=== PATIENT | male | born 1960 | race Caucasian/White ===

== ENCOUNTER 2021-06-11 02:30 | Inpatient (IN) | payer BC, MEDICAID, SELFPAY ==
[2021-06-11] VITALS (33 sets, daily range): BP systolic 126–202; BP diastolic 79–115; PULSE 74–124; RESP 12–22; TEMP 36.1–36.8; O2SAT 94–100; BMI 27.3
--- NOTE | ~2021-06-11 | XR_ITS ---
EXAMINATION: XR chest 1V portable DATE: 06/11/2021 02:47 INDICATION: Chest pain TECHNIQUE: frontal view of the chest was obtained. COMPARISON: None FINDINGS: The lungs are clear with no focal airspace opacities, pulmonary edema, pleural effusion or pneumothor ax. The cardiomediastinal silhouette is normal. There are bridging osteophytes at multiple levels in the spine, consistent with diffuse idiopathic skeletal hyperostosis (DISH). IMPRESSION: 1. No acute cardiopulmonary disease. Reviewed, dictated and finalized at location A.
--- NOTE | 2021-06-11 02:39 | ED.CHESTPAIN ---
HPI - Chest Pain General Chief Complaint: Chest Pain Stated Complaint: Chest pain Time Seen by Provider: 06/11/21 02:39 History of Present Illness HPI narrative: Patient presents with chest pain rating to his right arm and right neck symptoms are approximate 1 hour prior to arrival did not resolve with Excedrin so he came to the ER for evaluation. Denies any prior cardiac history denies any smoking history denies any past medical history does not take any medications on a regular basis, pain is a ripping sensation constant no clear aggravating or alleviating factors Related Data Home Medications Medication Instructions Recorded Confirmed No Home Medications 06/11/21 06/11/21 Allergies Allergy/AdvReac Type Severity Reaction Status Date / Time No Known Allergies Allergy Verified 06/11/21 03:02 Review of Systems Review of Systems: CONSTITUTIONAL: Denies fever, chills, or sweats. EYES: Denies visual changes, redness, or discharge. ENT: Denies rhinorrhea, congestion, sore throat, or otalgia. CARDIOVASCULAR: Denies palpitations, or edema. RESPIRATORY: Denies cough GASTROINTESTINAL: Denies abdominal pain, nausea, vomiting, or diarrhea. GENITOURINARY: Denies dysuria or hematuria. SKIN: Denies rash or itching. MUSCULOSKELETAL: Denies back pain, joint pain, or myalgia. NEUROLOGIC: Denies headache, numbness, dizziness, or weakness. PSYCHIATRIC: Denies anxiety or depression. All systems reviewed & are unremarkable except as noted in HPI and below Exam Narrative: GENERAL: Mild distress due to pain HEAD: Normocephalic, atraumatic. EYES: PERRLA and EOMI. ENT: Nares clear, no rhinorrhea or epistaxis. Mucous membranes moist. NECK: Supple. No masses. No JVD CHEST: Regular tachycardia HEART: Regular rate and rhythm. No murmur heard. Normal peripheral pulses. ABDOMEN: Soft, nontender, nondistended, normal active bowel sounds. EXTREMITIES: Normal range of motion. No edema. SKIN: Warm, dry, no rash. NEURO: No focal deficits. Alert and oriented x3. PSYCH: Normal mood and affect. Course Consultations Consultation #1: CODE STEMI CALLED Date: 06/11/21 Time: 02:40 Vital Signs Vital signs: Vital Signs Temperature 36.1 C L 06/11/21 02:33 Pulse Rate 124 H 06/11/21 02:33 Respiratory Rate 22 H 06/11/21 02:33 Blood Pressure 188/115 H 06/11/21 02:33 Pulse Oximetry 100 06/11/21 02:33 Temperature 36.1 C L 06/11/21 02:33 Pulse Rate 113 H 06/11/21 03:05 Respiratory Rate 16 06/11/21 03:05 Blood Pressure 155/113 H 06/11/21 03:05 Pulse Oximetry 100 06/11/21 03:05 MDM - Chest Pain MDM Narrative Medical decision making narrative: Patient with chest pain vital signs notable for regular tachycardia EKG was performed patient has ST elevations in inferior leads code STEMI was called interventional cardiology was notified patient was taken directly to the Motor Hotel Manager. Lab Data Result diagrams: 06/11/21 02:45 06/11/21 02:45 Labs: Lab Results 06/11/21 06/11/21 06/11/21 Range/Units 02:45 02:45 02:45 WBC 12.3 H (4.5-10.0) K/mm3 RBC 5.26 (4.6-6.20) M/mm3 Hgb 16.9 (14.0-18.0) g/dL Hct 48.8 (42.0-52.0) % MCV 92.8 (80-100) fl MCH 32.1 (26-34) pg MCHC 34.6 (32-36) g/dl RDW 12.9 (11.5-14.5) % Plt Count 284 (150-375) k/mm3 MPV 10.7 H (7.4-10.4) fl Immature Gran % (Auto) 0.5 (0-0.5) % Neut % (Auto) 74.3 H (45.5-73.1) % Lymph % (Auto) 17.5 L (18.3-44.2) % Garvin % (Auto) 5.8 (2.6-8.5) % Eos % (Auto) 1.3 (0-4.4) % Baso % (Auto) 0.6 (0.2-1.2) % Lymph # (Auto) 2.16 (0.9-3.2) K/mm3 Garvin # (Auto) 0.7 H (0.1-0.6) K/mm3 Eos # (Auto) 0.2 (0-0.3) K/mm3 Baso # (Auto) 0.1 (0.0-0.1) K/mm3 Abs Immat Gran (auto) 0.06 H (0.00-0.031) K/mm3 Absolute Neuts (auto) 9.1 H (1.3-6.7) K/mm3 Absolute Nucleated RBC 0.0 (0.0-0.012) K/mm3 Nucleated RBC % 0.0 (0.0-0.2) % PT 11.3 (11.1-14.7) Se
--- NOTE | 2021-06-11 02:42 | ECG_ITS ---
Measurements Intervals [place] Rate: 125 P: 247 MT: 190 QRS: 75 QRSD: 89 T: 91 QT: 282 QTc: 407 Interpretive Statements ECTOPIC ATRIAL TACHYCARDIA INFERIOR ST ELEVATION MYOCARDIAL INFARCT- ACUTE POSTERIOR INFARCT, ACUTE BASELINE ARTIFACT- II, III, AVR, AVF, V1, V3-V6 ABNORMAL ECG Electronically Signed On 06-11-2021 6:28:11 CDT by Gabo Peace D.O.
[2021-06-11] MEDS: ONDANSETRON INJ 4 MG/2 ML VIAL IV PUSH (02:59)
[2021-06-11] MEDS: MORPHINE SULFATE (*CRX) 4 MG/ML INJ IV PUSH (03:00)
[2021-06-11] MEDS: ASPIRIN 81 MG CHEWABLE TABLET 324 MG PO (03:00)
[2021-06-11] MEDS: HEPARIN SODIUM 5,000 UNITS/ML VIAL 4000 UNITS IV PUSH (03:01)
--- NOTE | 2021-06-11 03:04 | PC.NURSE ---
awaiting cardiac catheterization technician.
--- NOTE | 2021-06-11 04:22 | WPDCARDPROC ---
Cardiac Cath Procedure Note Date of procedure:: 06/11/21 Performing physician:: Aracely Boston MD Date of service June 11, 2021 Indication:: inferior STEMI Brief clinical history:: this 61-year-old patient with no significant past medical history except for remote tobacco use for about 20 years but quit many years ago. He started at 1:30 a.m. complaining of central chest pain that was not relieved by Excedrin. It was central in location associated with nausea. He presented to our emergency room around 2:30 a.m. and was found to have inferior STEMI. His ST segment elevation leads 2 3 and AVF were about 4-5 mm. Associated with shortness of breath but denies dizziness or syncope. Does not take any medications at home. Procedure Procedure performed:: 1-Moderate sedation that started at 3:29 a.m. and ended at 4:15 a.m. with total duration 46 minutes using 3mg of Versed and 125mcg fentanyl. The registered nurse was Sunny Black. 2-Selective left and right coronary angiogram. 3-Left heart catheterization with measurement of LVEDP and measurement of gradient across aortic valve. 3- LV angiogram. 4- Deployment with drug-eluting stent 3.5 x 18 to distal right coronary artery. 4-Right common femoral arterial angiogram. 5-Deployment of 6 Austrian Angio-Seal. Sedation/Medication given:: Moderate sedation. Access site:: Right common femoral artery. Estimated blood loss:: 10cc Procedure note:: After informed consent patient was brought in to photographic laboratory technician with the was draped and prepped in usual manner. Moderate sedation was given and the right groin was infiltrated using 1% lidocaine. Six Austrian sheath was obtained using micropuncture needle and the modified Seldinger technique. Right coronary artery was engaged with difficulty using RCB guide catheter 6 Austrian. We tried initially JR4, WRP, AL1, AR1 without success. Then after that we went with coronary luge wire but we did not cross the distal lesion. After that we went with School Transportation Supervisor 150 wire and we managed to cross the lesion. After the balloon angioplasty done using 3 x 15 balloon with 2 inflations each under normal pressure for 25 seconds. Then deployed a drug-eluting stent Xience Leona 3.50x18 under nominal pressure for 25 seconds. Selective left coronary angiogram was done using JL4 catheter with the tip of the catheter placed in the left main coronary artery. Selective right coronary angiogram was done using JR4 catheter with the tip of the catheter placed to the right coronary artery. After that 5 Austrian pigtail catheter was advanced across the aortic valve into the left ventricle with measurement of LVEDP and measurement of gradient across aortic valve. The angiogram was done as well. Right common femoral arterial angiogram was done. deployed Angio-Seal. Findings:: 1- left coronary artery is a large artery that divides into large LAD, large circumflex artery. Left main has minimal irregularities. 2- left anterior descending artery is a large artery that runs and wraps around the apex. The LAD has diffuse irregularities in the proximal segment there are 30% and at the junction of the distal segment there is about 60%. Small diagonal 1 branch with ostial 60%. 3- leftcircumflex artery is a large artery Has diffuse minimal irregularities. Small OM1 has ostial 70%. 4- right coronary artery is Large artery and dominant and totally occluded distally. SHAE flow was 0 before intervention and 3 after intervention. 5- LVEDP was 12 mm Hg and no gradient across aortic valve. 6- LV angiogram shows estimated ejection fraction 55%. Basal and mid inferior wall akinesis. 6- opening arterial pressure was 160/70 and closing pressure was 130/80 7- right femoral artery angiogram shows no significant disease in the right common femoral artery. 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 60% lesion at the junction of the mid to distal segment of LAD. Assessment and Plan Additional Plan -
--- NOTE | 2021-06-11 04:30 | PM.IMHP ---
H&P: HPI History of Present Illness Date/Time: date of service 06/11/21 04:30 Chief Complaint: chest pain Narrative: this 61-year-old patient with no significant past medical history except for remote tobacco use for about 20 years but quit many years ago. He started at 1:30 a.m. complaining of central chest pain that was not relieved by Excedrin. It was central in location associated with nausea. He presented to our emergency room around 2:30 a.m. and was found to have inferior STEMI. His ST segment elevation leads 2 3 and AVF were about 4-5 mm. Associated with shortness of breath but denies dizziness or syncope. Does not take any medications at home. Review of Systems Review of Systems: All systems reviewed & are unremarkable except as noted in HPI and below Constitutional: Constitutional: Denies chills, Denies fatigue, Denies fever(s), Denies headache(s) and Denies snoring Eyes: Eyes: Denies eye discharge and Denies loss of vision ENT: Denies dizziness, Denies headache(s), Denies nasal discharge and Denies sore throat Cardiovascular: Cardiovascular: Reports as per HPI, Reports chest pain, Denies syncope, Denies rapid heart rate, Denies leg edema, Reports dyspnea, Denies dyspnea on exertion, Denies orthopnea and Denies paroxysmal nocturnal dyspnea Respiratory: Respiratory: Denies chest congestion, Denies cough, Reports dyspnea, Denies dyspnea on exertion, Denies snoring and Denies wheezing Gastrointestinal: Gastrointestinal: Denies abdominal pain, Denies diarrhea, Denies nausea and Denies vomiting Genitourinary: Genitourinary: Denies hematuria, Denies dysuria, Denies flank pain and Denies urinary frequency Musculoskeletal: Musculoskeletal: Denies myalgias, Denies arthralgias and Denies joint swelling Neurologic: Denies Abnormal speech present, Denies dizziness, Denies syncope, Denies headache(s), Denies focal weakness and Denies loss of vision Psychiatric: Psychiatric: Denies anxiety and Denies depression Endocrine: Endocrine: Denies cold intolerance, Denies fatigue and Denies heat intolerance Hematologic/Lymphatic: Hematologic/Lymphatic: Denies easy bleeding and Denies easy bruising Allergic/Immunologic: Allergic/Immunologic: Denies urticaria and Denies wheezing Meds Home Medications and Allergies Home Medications Medication Instructions Recorded Confirmed Type No Home Medications 06/11/21 06/11/21 History Allergies Allergy/AdvReac Type Severity Reaction Status Date / Time No Known Allergies Allergy Verified 06/11/21 03:02 Vital Signs Vital Signs - 24 hr 06/11/21 02:33 06/11/21 03:05 Temperature 36.1 C L Pulse Rate 124 H 113 H Respiratory Rate 22 H 16 Blood Pressure 188/115 H 155/113 H Pulse Oximetry 100 100 Exam Const: General: cooperative, healthy appearing, comfortable, no acute distress and well developed Nutritional Appearance: well nourished Orientation/consciousness: patient oriented x3 HENMT: Head: normal to inspection, normocephalic and atraumatic Ears: hearing grossly normal bilaterally and external ears normal General nose exam: Normal external nose present and Normal nares present Face and sinus: normal facial exam and no erythema Mouth: Yes moist mucous membranes and No lip abnormal Throat: uvula midline Eyes: General: appearance normal, both eyes and all related structures Eyelids: eyelids normal Sclera: sclerae normal Neck: Neck: normal visual inspection and full ROM Thyroid: thyroid normal Carotids: no bruits Lymphatic: lymphedema not noted Chest: Chest palpation & inspection: normal inspection of the chest and normal palpation of entire chest wall Resp: Effort & Inspection: normal respiratory effort and not labored Auscultation: clear to auscultation bilaterally, no crackles, no rales and no wheezes Cardio: Jugular venous distension: no JVD Rate: regular rate Rhythm: regular rhythm Heart sounds: S1 normal heart sound present, S2 normal heart sound pre
--- NOTE | 2021-06-11 04:33 | WPDMODSED ---
Moderate Sedation Note-Pt Data Patient Data Allergies Allergy/AdvReac Type Severity Reaction Status Date / Time No Known Allergies Allergy Verified 06/11/21 03:02 Home Medications Medication Instructions Recorded Confirmed Type No Home Medications 06/11/21 06/11/21 History Current Medications: Active Medications Hydromorphone HCl (Hydromorphone Hcl Inj (*Crx) 1 Mg/Ml Syr) 0.5 mg IV PUSH Q4H PRN PRN Reason: Pain Rated 7-10 Ondansetron HCl (Ondansetron Inj 4 Mg/2 Ml Vial) 4 mg IV PUSH Q4H PRN PRN Reason: Nausea Sedation/Anesthesia: No previous sedation/anesthesia problems (including family history). Mod Sed Physical Exam Physical Exam Pre Procedural Exam: Normal: Appearance, Eyes, Ears, Nose, Neck, Throat, Airway, Lungs, Heart Size, Heart Rate, Heart Rhythm, Neuro Exam, Abdomen, Liver, Kidneys, Spleen, Breasts, Genitalia, Extremities and Skin Hours since solid foods: 8 Hours since liquid intake: 8 Mallampati Classification: class 1 Internal Medicine - PN: Obj Da Vital Signs Vital Signs: Vital Signs - 24 hr 06/11/21 02:33 06/11/21 03:05 Temperature 36.1 C L Pulse Rate 124 H 113 H Respiratory Rate 22 H 16 Blood Pressure 188/115 H 155/113 H Pulse Oximetry 100 100 Meds/Results Medications: Active Medications Generic Name Dose Route Start Last Admin Trade Name Freq PRN Reason Stop Dose Admin Hydromorphone HCl 0.5 mg 06/11/21 03:41 Hydromorphone Hcl Inj (*Crx) 1 Mg/Ml Syr IV PUSH Q4H PRN Pain Rated 7-10 Ondansetron HCl 4 mg 06/11/21 03:41 Ondansetron Inj 4 Mg/2 Ml Vial IV PUSH Q4H PRN Nausea ASA Classification/Sedation ASA Classification/Sedation ASA Class: I Emergent: No Risks: Risks, benefits and alternatives explained and patient/family accepted plan for sedation. Patient re-evaluated immediately prior to sedation.
[2021-06-11 04:42] LABS: Basophils Absolute Auto 0.1 K/mm3 (0.0-0.1); Basophils Percent Auto 0.6 % (0.2-1.2); Eosinophils Absolute Auto 0.2 K/mm3 (0-0.3); Eosinophils Percent Auto 1.3 % (0-4.4); Hematocrit 48.8 % (42.0-52.0); Hemoglobin 16.9 g/dL (14.0-18.0); Immature Granulocyte Absolute 0.06 K/mm3 (0.00-0.031); Immature Granulocyte Percent A 0.5 % (0-0.5); Lymphocytes Absolute Auto 2.16 K/mm3 (0.9-3.2); Lymphocytes Percent Auto 17.5 % (18.3-44.2); Mean Corpuscular HGB Conc 34.6 g/dl (32-36); Mean Corpuscular Hemoglobin 32.1 pg (26-34); Mean Corpuscular Volume 92.8 fl (80-100); Mean Platelet Volume 10.7 fl (7.4-10.4); Monocytes Absolute Auto 0.7 K/mm3 (0.1-0.6); Monocytes Percent Auto 5.8 % (2.6-8.5); Neutrophils Absolute Auto 9.1 K/mm3 (1.3-6.7); Neutrophils Percent Auto 74.3 % (45.5-73.1); Platelet Count Result 284 k/mm3 (150-375); Red Blood Count 5.26 M/mm3 (4.6-6.20); Red Cell Distribution Width 12.9 % (11.5-14.5); White Blood Count 12.3 K/mm3 (4.5-10.0)
[2021-06-11 04:57] LABS: Alanine Aminotransferase 45 U/L (4-50); Albumin Level 5.2 g/dL (3.5-5.1); Alkaline Phosphatase 97 U/L (38-126); Anion Gap 15 mmol/L (8-16); Aspartate Amino Transferase 48 U/L (17-59); Bilirubin,Total 0.5 mg/dL (0.2-1.3); Blood Urea Nitrogen 17 mg/dL (9-20); Calcium 10.4 mg/dL (8.4-10.2); Carbon Dioxide 25 mmol/L (22-30); Chloride 102 mmol/L (98-107); Estimated CRCL calculation 70 ml/min; Estimated Glomerular Filt Rate > 60; Glucose 162 mg/dL (65-110); Potassium 4.1 mmol/L (3.4-5.0); Sodium 142 mmol/L (137-145)
[2021-06-11 04:58] LABS: INR 0.8; Prothrombin Time 11.3 Seconds (11.1-14.7)
[2021-06-11 04:59] LABS: Partial Thromboplastin Time 22.5 SECONDS (22.3-36.8)
[2021-06-11 05:13] LABS: Troponin I 0.414 ng/mL (0.000-0.034)
[2021-06-11 05:14] LABS: Troponin I 0.418 ng/mL (0.000-0.034)
[2021-06-11 05:21] LABS: Cholesterol 241 mg/dL (0-200); HDL Direct 53 mg/dL; Triglycerides 224 mg/dL (<150)
[2021-06-11] MEDS: HYDROmorphone HCL INJ (*CRX) 1 MG/ML SYR 0.5 MG IV PUSH ×3 (05:25→21:59)
[2021-06-11 05:32] LABS: LDL Cholesterol Direct 152 mg/dL
[2021-06-11 06:20] LABS: Hemoglobin A1C 5.7 % (<5.7)
--- NOTE | 2021-06-11 08:00 | ECG_ITS ---
Measurements Intervals [place] Rate: 96 P: 73 AK: 174 QRS: 79 QRSD: 93 T: -3 QT: 368 QTc: 466 Interpretive Statements SINUS RHYTHM INFERIOR INFARCT, PROBABLY RECENT ABNORMAL ECG Electronically Signed On 06-11-2021 9:23:51 CDT by Gabo Peace D.O.
[2021-06-11] MEDS: SODIUM CHLORIDE 0.9% IV 1,000 ML 125 ML IV CONT (08:08)
--- NOTE | 2021-06-11 08:47 | PM.PNCARD ---
Progress Note: A&P Assessment and Plan (1) ST elevation (STEMI) myocardial infarction: Qualifiers: Involved coronary artery: unspecified coronary artery Qualified Code(s): I21.3 - ST elevation (STEMI) myocardial infarction of unspecified site Code(s): I21.3 - ST elevation (STEMI) myocardial infarction of unspecified site Status: Acute Assessment and Plan: Status post PEDRO to the RCA. Residual disease in the LAD which is moderate. Currently feels much better. Groin is stable. Continue dual anti-platelet therapy, high-dose statin. Will add low-dose JORDY-inhibitor, check an EKG and will add a low-dose metoprolol 12.5 mg p.o. b.i.d. (2) Hyperlipidemia LDL goal <70: Code(s): E78.5 - Hyperlipidemia, unspecified Status: Acute Assessment and Plan: On statin (3) Elevated blood pressure reading: Code(s): R03.0 - Elevated blood-pressure reading, without diagnosis of hypertension Status: Acute Assessment and Plan: Adding low-dose JORDY-inhibitor and metoprolol Subjective Date/time seen: 06/11/21 08:47 Interval history: 61-year-old admitted overnight chest pain and found to have an inferior ST-elevation myocardial infarction. Status post PEDRO to the RCA. Residual Moderate disease in the mid LAD Date of service 06/11/2021: Feels okay at this point. Has some residual chest discomfort but much improved from a few hours ago. No groin pain no shortness of breath Review of Systems Review of Systems: All systems reviewed & are unremarkable except as noted in HPI and below Constitutional: Constitutional: Denies chills, Denies fatigue, Denies fever(s), Denies headache(s) and Denies snoring Eyes: Eyes: Denies eye discharge and Denies loss of vision ENT: Denies dizziness, Denies headache(s), Denies nasal discharge and Denies sore throat Cardiovascular: Cardiovascular: Reports as per HPI, Reports chest pain, Denies syncope, Denies rapid heart rate, Denies leg edema, Reports dyspnea, Denies dyspnea on exertion, Denies orthopnea and Denies paroxysmal nocturnal dyspnea Respiratory: Respiratory: Denies chest congestion, Denies cough, Reports dyspnea, Denies dyspnea on exertion, Denies snoring and Denies wheezing Gastrointestinal: Gastrointestinal: Denies abdominal pain, Denies diarrhea, Denies nausea and Denies vomiting Genitourinary: Genitourinary: Denies hematuria, Denies dysuria, Denies flank pain and Denies urinary frequency Musculoskeletal: Musculoskeletal: Denies myalgias, Denies arthralgias and Denies joint swelling Neurologic: Denies Abnormal speech present, Denies dizziness, Denies syncope, Denies headache(s), Denies focal weakness and Denies loss of vision Psychiatric: Psychiatric: Denies anxiety and Denies depression Endocrine: Endocrine: Denies cold intolerance, Denies fatigue and Denies heat intolerance Hematologic/Lymphatic: Hematologic/Lymphatic: Denies easy bleeding and Denies easy bruising Allergic/Immunologic: Allergic/Immunologic: Denies urticaria and Denies wheezing Exam Const: General: cooperative, healthy appearing, comfortable, no acute distress and well developed Nutritional Appearance: well nourished Orientation/consciousness: patient oriented x3 HENMT: Head: normal to inspection, normocephalic and atraumatic Ears: hearing grossly normal bilaterally and external ears normal General nose exam: Normal external nose present and Normal nares present Face and sinus: no erythema Mouth: Yes moist mucous membranes and No lip abnormal Eyes: Eyelids: eyelids normal Sclera: sclerae normal Neck: Neck: normal visual inspection Carotids: no bruits Lymphatic: lymphedema not noted Chest: Chest palpation & inspection: normal inspection of the chest and normal palpation of entire chest wall Resp: Effort & Inspection: normal respiratory effort and not labored Auscultation: clear to auscultation bilaterally, no crackles, no rales and no wheezes Cardio: Jugu
--- NOTE | 2021-06-11 09:01 | PC.NURSE ---
[facility] flyer was given to patient.
--- NOTE | 2021-06-11 09:40 | WPDCNINT ---
Assessment and Plan Assessment and plan (1) ST elevation (STEMI) myocardial infarction: Qualifiers: Involved coronary artery: unspecified coronary artery Qualified Code(s): I21.3 - ST elevation (STEMI) myocardial infarction of unspecified site Code(s): I21.3 - ST elevation (STEMI) myocardial infarction of unspecified site Status: Acute Assessment and Plan: Presented with chest pain, found to have acute inferior DE status post PEDRO to RCA, EF of 55%, residual disease in LAD which is moderate, continue dual antiplatelet therapy, high-dose statin, -cardiology following the patient is added JORDY inhibitor and low-dose metoprolol (2) Elevated blood pressure reading: Code(s): R03.0 - Elevated blood-pressure reading, without diagnosis of hypertension Status: Acute Assessment and Plan: Continue JORDY-inhibitor and metoprolol -continue to monitor (3) Hyperlipidemia LDL goal <70: Code(s): E78.5 - Hyperlipidemia, unspecified Status: Acute Assessment and Plan: Continue Statin Additional Plan Discussed with patient updated with his condition and plan of care. Code status: Full code Critical care time spent: 41 minutes This dictation may have been done utilizing a voice recognition system. Attempts have been made to correct errors. However, there may be uncorrected grammatical, spelling, and recognition errors present. Due to a high probability of clinically significant, life threatening deterioration, the patient required my highest level of preparedness to intervene emergently and I personally spent this critical care time directly and personally managing the patient. This critical care time included obtaining a history; examining the patient; pulse oximetry; ordering and review of studies; arranging urgent treatment with development of a management plan; evaluation of patient's response to treatment; frequent reassessment; and discussions with other providers. It was exclusive of separately billable procedures and treating other patients and teaching time. Please see Assessment and Plan section and the rest of the note for further information on patient assessment and treatment Correction Officer Supervisor Consult Note Consult date: 06/11/21 Time Seen: 07:04 Reason for consult: STEMI status post PEDRO x1 to distal RCA, EF 55% HPI: Adonis Romano is a 61 year old male with no significant past medical history except for remote tobacco use which she quit many years ago. Patient presented to the ER with midsternal chest pain associated with nausea and shortness of breath, denies any diaphoresis. There were no aggravating or alleviating factors. EKG showed acute inferior myocardial injury. Patient was taken emergently to the boot and shoe laborer status post PTCA/PCI and was found to have a total occlusion of the distal RCA, status post PEDRO x1, EF was 55% with basal and mild inferior wall akinesis. Patient also has residual disease in the LAD which is moderate. Patient was turned to the ICU for further management Patient seen and examined this morning, denies any chest pain at this time, denies any shortness breath, nausea, vomiting. States he just tired as he has not slept. Patient states he smoked 2 packets per day for about 28 years and has quit since many years. He does drink beer, 12 pack per week. Denies any illicit drug use. Patient is hemodynamically stable, urine output has been adequate, afebrile. 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
[2021-06-11] MEDS: traMADol HCL (*CRX) 50 MG TABLET PO ×2 (09:53→19:40)
[2021-06-11] MEDS: METOPROLOL TARTRATE 12.5 MG TABLET PO ×2 (09:54→21:33)
[2021-06-11] MEDS: lisinopriL 5 MG TABLET PO (09:54)
[2021-06-11] MEDS: TICAGRELOR 90 MG TABLET PO ×2 (09:54→21:33)
[2021-06-11] MEDS: ATORVASTATIN 40 MG TABLET PO (09:54)
[2021-06-11] MEDS: ASPIRIN 81 MG ENTERIC TABLET PO (09:55)
--- NOTE | 2021-06-11 15:42 | PC.NURSE ---
Brilinta cost will be $400.00 monthly. Patient unable to afford this medication. Care coordination attempting to get a hold of Cardiology.
[2021-06-12] VITALS (15 sets, daily range): BP systolic 120–148; BP diastolic 68–87; PULSE 22–106; RESP 12–20; TEMP 36.8–36.9; O2SAT 96–100
[2021-06-12 04:52] LABS: Basophils Percent Auto 0.3 % (0.2-1.2); Eosinophils Percent Auto 0.2 % (0-4.4); Hematocrit 43.8 % (42.0-52.0); Hemoglobin 15.1 g/dL (14.0-18.0); Immature Granulocyte Absolute 0.06 K/mm3 (0.00-0.031); Immature Granulocyte Percent A 0.4 % (0-0.5); Mean Corpuscular HGB Conc 34.5 g/dl (32-36); Mean Corpuscular Hemoglobin 32.5 pg (26-34); Mean Corpuscular Volume 94.4 fl (80-100); Monocytes Absolute Auto 1.5 K/mm3 (0.1-0.6); Neutrophils Absolute Auto 11.4 K/mm3 (1.3-6.7); Neutrophils Percent Auto 78.1 % (45.5-73.1); Platelet Count Result 236 k/mm3 (150-375); Red Blood Count 4.64 M/mm3 (4.6-6.20); White Blood Count 14.6 K/mm3 (4.5-10.0)
[2021-06-12 05:02] LABS: Anion Gap 8 mmol/L (8-16); Blood Urea Nitrogen 12 mg/dL (9-20); Calcium 9.1 mg/dL (8.4-10.2); Carbon Dioxide 26 mmol/L (22-30); Chloride 105 mmol/L (98-107); Estimated CRCL calculation 100 ml/min; Estimated Glomerular Filt Rate > 60; Glucose 134 mg/dL (65-110); Magnesium 2.3 mg/dL (1.6-2.3); Phosphorus 3.4 mg/dL (2.5-4.5); Potassium 3.8 mmol/L (3.4-5.0); Sodium 139 mmol/L (137-145)
[2021-06-12] MEDS: HYDROmorphone HCL INJ (*CRX) 1 MG/ML SYR 0.5 MG IV PUSH ×2 (05:34→10:14)
--- NOTE | 2021-06-12 07:00 | ECG_ITS ---
Measurements Intervals [place] Rate: 83 P: 58 UT: 169 QRS: 48 QRSD: 90 T: -43 QT: 395 QTc: 465 Interpretive Statements SINUS RHYTHM INFERIOR INFARCT, PROBABLY RECENT ABNORMAL ECG Electronically Signed On 06-12-2021 8:39:13 CDT by Gabo Peace D.O.
[2021-06-12] MEDS: ATORVASTATIN 40 MG TABLET PO (08:32)
[2021-06-12] MEDS: lisinopriL 5 MG TABLET PO (08:32)
[2021-06-12] MEDS: TICAGRELOR 90 MG TABLET PO ×2 (08:32→19:57)
[2021-06-12] MEDS: METOPROLOL TARTRATE 12.5 MG TABLET PO ×2 (08:32→19:57)
[2021-06-12] MEDS: ASPIRIN 81 MG ENTERIC TABLET PO (08:32)
--- NOTE | 2021-06-12 12:28 | WPDINTPN ---
Progress Note: A&P Assessment and Plan (1) ST elevation (STEMI) myocardial infarction: Qualifiers: Involved coronary artery: unspecified coronary artery Qualified Code(s): I21.3 - ST elevation (STEMI) myocardial infarction of unspecified site Code(s): I21.3 - ST elevation (STEMI) myocardial infarction of unspecified site Status: Acute Assessment and Plan: Presented with chest pain, found to have acute inferior ND status post PEDRO to RCA, EF of 55%, residual disease in LAD which is moderate, continue dual antiplatelet therapy, high-dose statin, -cardiology following the patient. Continue JORDY inhibitor and metoprolol (2) Elevated blood pressure reading: Code(s): R03.0 - Elevated blood-pressure reading, without diagnosis of hypertension Status: Acute Assessment and Plan: Continue JORDY-inhibitor and metoprolol -continue to monitor (3) Hyperlipidemia LDL goal <70: Code(s): E78.5 - Hyperlipidemia, unspecified Status: Acute Assessment and Plan: Continue Statin Additional Plan Discussed with patient and his on the phone and updated them with patient's condition and plan of care. I answered all questions. Code status: Full code Critical care time spent: 32 minutes This dictation may have been done utilizing a voice recognition system. Attempts have been made to correct errors. However, there may be uncorrected grammatical, spelling, and recognition errors present. Due to a high probability of clinically significant, life threatening deterioration, the patient required my highest level of preparedness to intervene emergently and I personally spent this critical care time directly and personally managing the patient. This critical care time included obtaining a history; examining the patient; pulse oximetry; ordering and review of studies; arranging urgent treatment with development of a management plan; evaluation of patient's response to treatment; frequent reassessment; and discussions with other providers. It was exclusive of separately billable procedures and treating other patients and teaching time. Please see Assessment and Plan section and the rest of the note for further information on patient assessment and treatment Subjective Date/time seen: 06/12/21 12:28 Interval history: Reason for consult: STEMI status post PEDRO x1 to distal RCA, EF 55% 06/30/2021: Patient seen examined this morning in the ICU, complains of mild shortness of breath, some right upper chest discomfort. Denies any nausea, vomiting, diaphoresis. Patient is hemodynamically stable, urine output has been adequate, afebrile, tolerating p.o. diet Review of Systems Review of Systems: All systems reviewed & are unremarkable except as noted in HPI and below Exam Const: General: comfortable and no acute distress HENMT: Mouth: Yes moist mucous membranes Eyes: Sclera: sclerae normal Pupils: Equal, round and reactive pupils present Neck: Neck: supple Thyroid: thyroid normal Lymphatic: lymphadenopathy not noted Resp: Effort & Inspection: normal respiratory effort Auscultation: clear to auscultation bilaterally Cardio: Rate: regular rate and tachycardic GI: Inspection: non-distended GI Palp: Yes Soft to palpation and No Tenderness to palpation present (GI) Auscultation: normal bowel sounds : Other: Deferred Urinary Catheter: Urinary Catheter: urine clear Skin: General skin exam: normal color and no rashes or lesions noted Neuro: Cranial nerves: Yes Equal, round and reactive pupils present Other: Patient is awake, alert, oriented x3 Extrem: General: normal to inspection, no edema and no pedal edema Other: Right groin site without evidence of ecchymosis or hematoma Psych: Mental Status: mental status grossly normal Affect: normal affect Objective Data Vital Signs Vital Signs: Vital Signs - 24 hr 06/11/21 12:58 06/11/21 13:00 06/11/21 14:00 Temperature Pul
--- NOTE | 2021-06-12 16:43 | PM.PNCARD ---
Progress Note: A&P Assessment and Plan (1) ST elevation (STEMI) myocardial infarction: Qualifiers: Involved coronary artery: unspecified coronary artery Qualified Code(s): I21.3 - ST elevation (STEMI) myocardial infarction of unspecified site Code(s): I21.3 - ST elevation (STEMI) myocardial infarction of unspecified site Status: Acute Assessment and Plan: Status post PEDRO to the RCA. Residual disease in the LAD which is moderate. Currently feels much better. Groin is stable. 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 EKG from earlier this morning on my personal review shows sinus rhythm with inferior Q-waves and slight ST elevation in the inferior leads similar to that which she had post intervention. In addition there is very slight p.o. depression in V4 and V5, consistent with pericarditis. Dilaudid seems to be helping. Will increase aspirin dosing and add colchicine EKG in the morning Keep overnight and re-evaluate tomorrow. (3) Hyperlipidemia LDL goal <70: Code(s): E78.5 - Hyperlipidemia, unspecified Status: Acute Assessment and Plan: On statin (4) Elevated blood pressure reading: Code(s): R03.0 - Elevated blood-pressure reading, without diagnosis of hypertension Status: Acute Assessment and Plan: Adding low-dose JORDY-inhibitor and metoprolol. Fairly well controlled. (5) Elevated blood sugar: Code(s): R73.9 - Hyperglycemia, unspecified Status: Acute Assessment and Plan: Blood sugars 162, 134 Check A1c Subjective Date/time seen: 06/12/21 16:43 Interval history: FU for [id number] admitted early 06/11/[address]-elevation myocardial infarction. Status post PEDRO to the RCA. Residual Moderate disease in the mid LAD. EF 55%. Date of service 06/11/2021: Feels okay at this point. Has some residual chest discomfort but much improved from a few hours ago. No groin pain no shortness of breath Date of service 06/12/2021: Not feeling well, some heaviness in his chest particularly with inspiration. This makes him feel little short of breath. Did not sleep well either. Has been out of bed and back and forth to the bathroom with no particular problems. Review of Systems Constitutional: Constitutional: Reports fatigue and Reports lethargy Eyes: Eyes: Reports no additional eye complaints ENT: Denies epistaxis Cardiovascular: Cardiovascular: Reports chest pain, Denies pedal edema, Denies leg edema, Denies lightheadedness and Denies palpitations Respiratory: Respiratory: Reports dyspnea Gastrointestinal: Gastrointestinal: Denies abdominal pain and Denies hematochezia Genitourinary: Genitourinary: Denies hematuria Musculoskeletal: Musculoskeletal: Reports no additional musculoskeletal complaints Integumentary/Breasts: Skin/Breast: Denies rash Neurologic: Reports system reviewed and no additional complaints, except as documented Psychiatric: Psychiatric: Reports no additional psychiatric complaints Exam Const: General: no acute distress and uncomfortable HENMT: Mouth: Yes moist mucous membranes Eyes: EOM: EOMs intact bilaterally Neck: Neck: supple Resp: Effort & Inspection: normal respiratory effort Auscultation: clear to auscultation bilaterally Cardio: Rate: regular rate Rhythm: regular rhythm Heart sounds: Rub heart sound present Other: Cath site without hematoma or tenderness, distal pulses intact GI: Inspection: non-distended GI Palp: Yes Soft to palpation, No Firmness to palpation present (GI) and N
[2021-06-12] MEDS: oxyCODONE/ACETAMINOPHEN (*CRX) 5-325 MG TABLET 2 TABLET PO ×2 (17:53→22:46)
[2021-06-12] MEDS: ASPIRIN 325 MG TABLET 650 MG PO ×2 (18:03→22:46)
[2021-06-12] MEDS: COLCHICINE 0.6 MG TABLET PO (19:57)
--- NOTE | 2021-06-12 20:59 | PC.NURSE ---
Update given to Sudha Mckeon RN and pt transferred to room 214 im IMU at 2044. Transferred with home belongings and medications. Four brilinta bottles placed in pt home bag as well as cath information given to patient.
--- NOTE | 2021-06-12 21:10 | PC.NURSE ---
This patient, Adonis Romano, was received from ICU-7 on 06/12/21 at 2045. Patient/family oriented to unit policies and routines
[2021-06-12] MEDS: TEMAZEPAM (*CRX) 15 MG CAPSULE PO (22:46)
[2021-06-13] VITALS (9 sets, daily range): BP systolic 104–130; BP diastolic 63–83; PULSE 79–98; RESP 16–20; TEMP 36.3–36.9; O2SAT 96–99
[2021-06-13 00:49] LABS: Hemoglobin A1C 5.7 % (<5.7)
[2021-06-13] MEDS: ASPIRIN 325 MG TABLET 650 MG PO ×2 (05:52→12:16)
--- NOTE | 2021-06-13 07:00 | ECG_ITS ---
Measurements Intervals [place] Rate: 100 P: 50 DE: 140 QRS: 54 QRSD: 104 T: -51 QT: 364 QTc: 470 Interpretive Statements SINUS TACHYCARDIA ATRIAL PREMATURE COMPLEX EARLY PRECORDIAL R/S TRANSITION INFERIOR MYOCARDIAL INFARCTION , PROBABLY RECENT BASELINE ARTIFACT- I, II, AVR ABNORMAL ECG Electronically Signed On 06-13-2021 9:04:23 CDT by Gabo Peace D.O.
[2021-06-13] MEDS: ATORVASTATIN 40 MG TABLET PO (08:32)
[2021-06-13] MEDS: COLCHICINE 0.6 MG TABLET PO (08:33)
[2021-06-13] MEDS: PANTOPRAZOLE SOD SESQUIHYDRATE 20 MG TAB PO (08:33)
[2021-06-13] MEDS: lisinopriL 5 MG TABLET PO (08:33)
[2021-06-13] MEDS: METOPROLOL TARTRATE 12.5 MG TABLET PO (08:33)
[2021-06-13] MEDS: TICAGRELOR 90 MG TABLET PO (08:34)
--- NOTE | 2021-06-13 15:01 | PM.DS ---
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 EKG showed [address] elevation in the inferior leads, V5 V6 with reciprocal ST depression. He was taken to the [facility] emergently by Dr. [place] and found have an occluded distal RCA. He had a 3.5 x 18 mm drug-eluting stent placed in the mid RCA. He has residual 60% stenosis of the mid to distal Left anterior descending and the small 1st obtuse marginal has a 70% ostial stenosis, small 1st diagonal with a 60% ostial stenosis. He was found to have inferior wall hypokinesis and ejection fraction of 55%. He had residual [address]-elevation in the inferior leads but significant improvement of his infarction changes. He remained hemodynamically stable but complained of pleuritic chest discomfort afterwards and a friction rub was heard. He had some mild AK depression. He was treated for post SC pericarditis with colchicine and aspirin 650 mg q.6 hours as well as analgesics with resolution of pain and the friction rub within 24 hours. My plan is to continue high-dose aspirin for another 3 days and go down to 81 mg daily. He was found to have elevated blood pressure treated with lisinopril and metoprolol. He has hyperlipidemia, with a total cholesterol of 241, triglycerides 224, LDL 152 an HDL 53, and was started on atorvastatin 80 mg daily. His blood sugars were 162 and 134 fasting, and A1c was 5.7, mildly abnormal. Heart healthy diet was reviewed. The patient's insurance will not cover Brilinta well but he was given samples of Brilinta for 16 days and a coupon card for Brilinta. He was instructed to see if the coupon card would cover his Brilinta well enough to make it affordable but if not call our office and we will switch to clopidogrel. He was instructed not to have any gap between these 2 medications. Status at Discharge Functional status at discharge: independent ambulation Overall status at discharge: patient is back to baseline Time Spent with Patient Time attestation: Total time spent providing and/or coordinating discharge services: 40 minutes Time spent: Greater than 30 minutes Exam Const: General: cooperative, healthy appearing and comfortable Nutritional Appearance: well nourished Resp: Effort & Inspection: normal respiratory effort Auscultation: clear to auscultation bilaterally GI: GI Palp: No abdominal tenderness Skin: General skin exam: normal color Other: Cath site shows a clean dry dressing, no ecchymosis or hematoma. Intact distal pulses. Neuro: General: patient oriented x3 Speech: normal speech Motor exam (neuro): Normal motor muscle tone present throughout Extrem: General: normal to inspection Right lower extremity: no edema Left lower extremity: no edema Psych: Appearance: grossly normal and well kempt Thought process: Normal thought process present DS: Data Data Completed and Pending Labs on day of discharge: Labs
--- NOTE | 2021-06-13 16:08 | PC.NURSE ---
Patient discharged to home at 1605. Patient was educated on post STEMI care, meds, precautions and follow-ups. Patient had no further questions at this time.
== END 2021-06-13 16:05 | disposition home or self-care (01) | DRG 247 ==
LOC: ANHED 03:16 → ANHICU 05:05 → ANHIMU 06-13 15:00 → ANHICU 06-16 07:43 → ANHIMU 06-16 07:43
PROVIDERS: Internal Medicine; Admitting Provider Internal Medicine Cardiovascular Disease; Emergency Provider Emergency Medicine; Visit Provider Internal Medicine Cardiovascular Disease
PROC: 4A023N7 Measurement of Cardiac Sampling and Pressure, Left Heart, Percutaneous Approach (ICD-10-PCS; CPT 93452; principal; 2021-06-11 03:05)
PROC: 027034Z Dilation of Coronary Artery, One Artery with Drug-eluting Intraluminal Device, Percutaneous Approach (ICD-10-PCS; 2021-06-11 03:05)
PROC: 027034Z Dilation of Coronary Artery, One Artery with Drug-eluting Intraluminal Device, Percutaneous Approach (ICD-10-PCS; 2021-06-11 03:05)
DX: I21.11 ST elevation (STEMI) myocardial infarction involving right coronary artery (principal); I24.1 Dressler's syndrome; E78.2 Mixed hyperlipidemia; I10 Essential (primary) hypertension; R73.9 Hyperglycemia, unspecified; Z87.891 Personal history of nicotine dependence
CPT/HCPCS: 36415; 71045; 80048; 80053; 80061; 83036; 83735; 84100; 84484; 85025; 85610; 85730; 93005; 93458; 96374; 96375; 99291; A9270; C1725; C1760; C1769; C1874; C1887; C1894; C9606; G0269; J0583; J1170; J1644; J2250; J2270; J2405; J3010; J7030; J7040

== ENCOUNTER 2022-08-19 08:32 | Day surgery (SDC) | payer BC, MEDICAID, SELFPAY ==
[2022-08-18 13:52] VITALS: BMI 26.4
[2022-08-19] VITALS (8 sets, daily range): BP systolic 122–154; BP diastolic 71–83; PULSE 72–99; RESP 11–18; TEMP 36.6–36.8; O2SAT 96–99; BMI 27.1
[2022-08-19 09:02] LABS: Basophils Absolute Auto 0.1 K/mm3 (0.0-0.1); Basophils Percent Auto 0.9 % (0.2-1.2); Eosinophils Absolute Auto 0.2 K/mm3 (0-0.3); Eosinophils Percent Auto 2.7 % (0-4.4); Hematocrit 45.7 % (42.0-52.0); Hemoglobin 15.2 g/dL (14.0-18.0); Immature Granulocyte Absolute 0.02 K/mm3 (0.00-0.031); Immature Granulocyte Percent A 0.3 % (0-0.5); Lymphocytes Absolute Auto 1.51 K/mm3 (0.9-3.2); Mean Corpuscular HGB Conc 33.3 g/dl (32-36); Mean Corpuscular Hemoglobin 30.8 pg (26-34); Mean Corpuscular Volume 92.7 fl (80-100); Mean Platelet Volume 9.7 fl (7.4-10.4); Monocytes Absolute Auto 0.7 K/mm3 (0.1-0.6); Neutrophils Absolute Auto 4.1 K/mm3 (1.3-6.7); Neutrophils Percent Auto 63.1 % (45.5-73.1); Platelet Count Result 276 k/mm3 (150-375); Red Blood Count 4.93 M/mm3 (4.6-6.20); White Blood Count 6.6 K/mm3 (4.5-10.0)
[2022-08-19 09:12] LABS: Anion Gap 5 mmol/L (8-16); Blood Urea Nitrogen 17 mg/dL (9-20); Calcium 8.8 mg/dL (8.4-10.2); Carbon Dioxide 29 mmol/L (22-30); Chloride 103 mmol/L (98-107); Estimated CRCL calculation 76 ml/min; Estimated Glomerular Filt Rate > 60; Glucose 115 mg/dL (65-110); Potassium 4.1 mmol/L (3.4-5.0); Sodium 137 mmol/L (137-145)
--- NOTE | 2022-08-19 10:39 | WPDCARDPROC ---
Cardiac Cath Procedure Note Date of procedure:: 08/19/22 Performing physician:: Raymond Fontanez MD Indication:: Chest pain atypical of angina known history of coronary disease with previous NV Brief clinical history:: this is a 62-year-old patient known to have coronary disease who presented with an acute inferior NV 1 year ago. That was [place] treated with stenting of his distal right coronary artery which was totally occluded. He had some non flow-limiting disease in the LAD at that time as well. The patient has been having episodes of fatigue, some shortness of breath as well as intermittent episodes of chest discomfort with shooting pain into the left side of his neck he also has a constant unremitting mild discomfort in the substernal region. Nuclear stress testing appears to have shown evidence of his previous infarction but no substantial ischemic burden. Because of ongoing symptoms a follow-up angiogram has been requested for today. Procedure Procedure performed:: Left ventriculogram coronary angiogram Angio-Seal to right femoral artery Sedation/Medication given:: fentanyl 50 mg Versed 2 mg case start time 1005 a.m. case end time 10:30 a.m. sedation provided by Harjit Thompson RN, trained observer Access site:: right femoral artery Estimated blood loss:: minimal Procedure note:: patient was brought to the cardiac catheterization lab where the right femoral triangle was prepared and draped in the normal fashion. Anesthesia was provided % lidocaine infiltrated locally. Using the modified Seldinger technique a 5 [place] sheath was placed into the femoral artery. After this I used a 5 [place] angled pigtail catheter to measure left-sided hemodynamics and to inject the left ventriculogram in the 30 degree RAMEY projection after this I engaged and injected the right coronary artery using a 5 [place] WRP catheter and then the left coronary was engaged and injected using a 5 [place] FL4 catheter. Following this the cineangiograms were reviewed and the case was terminated. An angiogram was performed to the femoral artery through the sheath and then a 6 [place] Angio-Seal device was deployed for hemostasis with good result. 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 Findings:: Hemodynamics: Central aortic pressure is 132 over 64 left ventricle 1320 end-diastolic pressure 12 gradient the aortic valve pullback. Left ventricle: The mid and basal portion of the inferior wall in the posterior basal segment are akinetic. The diaphragmatic segment contracts well the anterior wall and apex contract well. The global ejection fraction visually estimates to be 50-55%. The left main coronary artery is nicely patent. The left anterior descending is a moderate caliber artery extending down to around the apex and providing a significant out of the inferior wall as well. There is adventitial calcium in the proximal LAD but no significant stenosis. In the mid portion of the LAD there is a modest stenosis of about 30%. Angiographically this appears to be improved from about 50-60% stenosis on the films that were done last year. In no view was there any flow-limiting disease in the LAD. Circumflex is a medium caliber vessel giving rise to 2 marginal branches. The circumflex system is free of significant disease. There is a modest 50% plaque at the origin, ostium of small 1st OM 1. The right coronary artery is moderate caliber and dominant to the posterior circulation. The RPDA is relatively small given the wrap-around LAD described above. The stented segment in the 3rd portion of the right coronary rates remains widely patent with no loss of lumen there is SHAE 3 flow throughout the right coronary with no stenosis identified in any segment. Conclusion:: 1. Right coronary dominant circulation with no significant coronary
== END 2022-08-19 13:49 | disposition home or self-care (01) ==
PROVIDERS: Visit Provider Specialist
PROC: 4A023N7 Measurement of Cardiac Sampling and Pressure, Left Heart, Percutaneous Approach (ICD-10-PCS; CPT 93452; principal; 2022-08-19 10:00)
DX: I25.10 Atherosclerotic heart disease of native coronary artery without angina pectoris (principal); R07.9 Chest pain, unspecified; R06.02 Shortness of breath; R53.83 Other fatigue; I25.2 Old myocardial infarction; K21.9 Gastro-esophageal reflux disease without esophagitis; E78.5 Hyperlipidemia, unspecified; Z95.5 Presence of coronary angioplasty implant and graft; Z85.038 Personal history of other malignant neoplasm of large intestine; Z87.891 Personal history of nicotine dependence; Z79.82 Long term (current) use of aspirin; Z79.02 Long term (current) use of antithrombotics/antiplatelets
CPT/HCPCS: 36415; 80048; 85025; 93458; C1760; C1887; C1894; G0269; J1644; J2250; J3010; J7040

== ENCOUNTER 2024-07-21 02:30 | Emergency (ER) | payer OTHER, SELFPAY ==
--- NOTE | ~2024-07-21 | XR_ITS ---
Portable chest x-ray Comparison: 06/11/2021 Clinical History: Shortness of breath Findings: Lungs are clear, without focal consolidation or pleural effusion. Cardiomediastinal silho uette is stable. Bones and soft tissues are unremarkable. Impression: Clear lungs. Questionable COPD. Reviewed, dictated and finalized at location . [employer] Impression: Clear lungs. Questionable COPD.
[2024-07-21 02:30] VITALS: BP 147/93; PULSE 81; RESP 15; TEMP 36.2; O2SAT 99
[2024-07-21 02:32] VITALS: BP 147/93; PULSE 96; RESP 19; O2SAT 100
--- NOTE | 2024-07-21 02:38 | ECG_ITS ---
Test Date: 2024-07-21 02:36:13 Measurements Intervals [place] Rate: 82 P: 51 MN: 172 QRS: 62 QRSD: 97 T: 33 QT: 404 QTc: 474 Interpretive Statements SINUS RHYTHM MINIMAL Q WAVES- INFERIOR LEADS BASELINE ARTIFACT- I, II, AVR, AVL, AVF, V6 BORDERLINE ECG No previous ECG available for comparison Electronically Signed On 07-21-2024 07:01:34 [employer] by Gabo Peace D.O.
[2024-07-21 02:51] LABS: Basophils Absolute Auto 0.1 K/mm3 (0.0-0.1); Basophils Percent Auto 0.6 % (0.2-1.2); Eosinophils Absolute Auto 0.2 K/mm3 (0-0.3); Eosinophils Percent Auto 2.4 % (0-4.4); Hemoglobin 14.5 g/dL (14.0-18.0); Immature Granulocyte Absolute 0.02 K/mm3 (0.00-0.031); Immature Granulocyte Percent A 0.2 % (0-0.5); Lymphocytes Absolute Auto 2.59 K/mm3 (0.9-3.2); Lymphocytes Percent Auto 31.2 % (18.3-44.2); Mean Corpuscular HGB Conc 34.5 g/dl (32-36); Mean Corpuscular Hemoglobin 31.7 pg (26-34); Mean Corpuscular Volume 91.7 fl (80-100); Monocytes Absolute Auto 0.8 K/mm3 (0.1-0.6); Monocytes Percent Auto 9.9 % (2.6-8.5); Neutrophils Absolute Auto 4.6 K/mm3 (1.3-6.7); Neutrophils Percent Auto 55.7 % (45.5-73.1); Platelet Count Result 251 k/mm3 (150-375); Red Blood Count 4.58 M/mm3 (4.6-6.20); Red Cell Distribution Width 12.9 % (11.5-14.5); White Blood Count 8.3 K/mm3 (4.5-10.0)
[2024-07-21 03:01] LABS: Alanine Aminotransferase 23 U/L (6-50); Albumin Level 4.3 g/dL (3.5-5.1); Alkaline Phosphatase 85 U/L (38-126); Anion Gap 8 mmol/L (4-12); Aspartate Amino Transferase 27 U/L (17-59); Bilirubin,Total 0.5 mg/dL (0.2-1.3); Blood Urea Nitrogen 21 mg/dL (9-20); Calcium 9.2 mg/dL (8.4-10.2); Carbon Dioxide 26 mmol/L (22-30); Chloride 103 mmol/L (98-107); Estimated CRCL calculation 76 ml/min; Estimated Glomerular Filt Rate > 60; Glucose 129 mg/dL (65-110); Lipase 251 U/L (23-300); Potassium 3.7 mmol/L (3.4-5.0); Sodium 137 mmol/L (137-145)
[2024-07-21 03:15] VITALS: BP 130/71; PULSE 78; RESP 17; O2SAT 96
--- NOTE | 2024-07-21 03:25 | ED_ITS ---
HPI - Nausea/Vomiting/Diarrhea General Chief complaint: Nausea/Vomiting/Diarrhea Stated complaint: vomiting Time Seen by Provider: 07/21/24 02:43 Source: patient, family, EMS and RN notes reviewed Mode of arrival: EMS Limitations: no limitations History of Present Illness HPI Narrative: Patient presents with acute onset nausea and dizziness that woke him his sleep. Unknown given this reason if he had turned his head in his sleep just prior to symptoms. He woke up diaphoretic. He denies any chest pain although he has a history of a myocardial infarction and a cardiac stent and for this reason especially combined with diaphoresis, he was concerned. He previously had a 100% blockage 2 years ago. He took 2 nitroglycerin and 81 mg of aspirin. After the 2nd nitroglycerin states the began to vomit. EMS administered a 3rd nitroglycerin. He denies any neck pain. He did feel short of breath. At home he felt like the room spinning and initially upon arrival in the emergency department he states that he feels like he is spinning. His fugitive detective is Dr. Boston. No headache, ear pain, or tinnitus. He states he has occasionally had vertigo previously but this felt different. Denies any slurred speech or unilateral symptoms such as paresthesias or loss of motor function. Related Data Home Medications Medication Instructions Recorded Confirmed nitroglycerin 0.4 mg sublingual 0.4 mg sublingual PRN 08/18/22 08/19/22 tablet pantoprazole 40 mg tablet,delayed 40 mg PO DAILY 08/18/22 08/18/22 release clopidogrel 75 mg tablet 75 mg PO DAILY 08/19/22 08/19/22 Allergies Allergy/AdvReac Type Severity Reaction Status Date / Time No Known Allergies Allergy Verified 07/21/24 02:40 [facility] Past Medical History Medical History (Updated 07/21/24 @ 18:36 by Annalisa Light MD) History of myocardial infarction 2021 Hyperlipidemia LDL goal <70 Hypertension Mixed hyperlipidemia Surgical History Surgical History H/O heart artery stent Family History Family History (System 11/03/21 @ 15:17 by Natasha Taylor) Mother Colon cancer Grandparent Colon cancer Social History Social History (Updated 07/21/24 @ 18:33 by Annalisa Light MD) Smoking packs per day: 2 Smoking cigarettes per day: 40.0 Years smoked: 28 Smoking pack-years: 56.00 Smoking status: Former smoker Tobacco type: cigarettes Second hand tobacco smoke exposure: No Alcohol intake: current Drinks per week: 12 Alcohol use details: 2 drinks every other day Substance use: current Substance use type: marijuana Living arrangements: with family Occupation/Education: occupation Additional occupation/education comments: [employer] Spiritual care concerns: No Exam Narrative: GENERAL: Well-appearing, well-nourished, and in no acute distress. HEAD: Normocephalic, atraumatic. EYES: Non injected, non icteric. Horizontal and vertical extraocular movements intact. No nystagmus in any direction. ENT: Nares clear, no rhinorrhea or epistaxis. NECK: Supple. CHEST: Speaking in full sentences. No respiratory distress. HEART: Regular rate and rhythm. ABDOMEN: Soft, nondistended. EXTREMITIES: Normal range of motion. No lower extremity edema. SKIN: Warm, dry, no rash. Not diaphoretic at the time of exam. NEURO: No focal deficits. Alert and oriented x3. Speaks clearly without aphasia or dysarthria. PSYCH: Normal mood and affect. Course Vital Signs Vital signs: Vital Signs Temperature 97.2 F L 07/21/24 02:30 Pulse Rate 81 07/21/24 02:30 Respiratory Rate 15 07/21/24 02:30 Blood Pressure 147/93 H 07/21/24 02:30 Pulse Oximetry 99 07/21/24 02:30 Oxygen Delivery Room Air 07/21/24 02:30 Temperature 97.2 F L 07/21/24 02:30 Pulse Rate 82 07/21/24 07:13 Respiratory Rate 18 07/21/24 07:13 Blood Pressure 143/87 H 07/21/24 07:13 Pulse Oximetry 99 07/21/24 07:13 Oxygen Delivery Room Air 07/21/24 02:30 MDM - Nausea/Vomiting/Diarrhea MDM Narrative Medical decision making narrative: Patient presents with acute onset nausea and dizziness that woke him from his sleep. Unknown if any preceding head or neck movements. He denies any chest or neck or head pain but he has a history myocardial infarction status post stent and given that he was diaphoretic at the time he was concerned for cardiac etiology. He took 2 nitroglycerin and 81 mg prior to arrival. After the 2nd nitroglycerin sublingual tablet he did begin to vomit. In the emergency department he is afebrile with vital signs notable for mild hypertension. VERTIGO DIFFERENTIAL DIAGNOSIS Peripheral causes: Foreign body, cerumen impaction, acute otitis media, labyrinthitis, benign paroxysmal positional vertigo, Meniere's disease, vestibular neuronitis, perilymphatic fistula, trauma, motion sickness, acoustic neuroma, ototoxic medications Central causes: infection ( encephalitis, meningitis, cerebritis); vertebrobasilar arterial insufficiency, subclavian steal syndrome, cerebellar or brainstem hemorrhage or infarction, vertebrobasilar migraine, trauma ( temporal bone fracture, post concussive syndrome); tumor (brainstem or cerebellum); MS; temporal lobe epilepsy Patient has reassuring physical exam without nystagmus or focal neurological deficits. He is provided a dose of meclizine. Workup generally unremarkable. He is reassessed and states that he is feeling much better. We did discuss that we would obtain a 3 hour troponin given his risk factors. He verifies understanding and is in agreement. We discussed that we could pursue CT imaging (CT noncontrast brain and CTA of head and neck) though he states he does not think this is necessary and likely to be of low utility. 2nd troponin normal. Remains without chest pain. Symptoms resolved. Stable for discharge and advised on follow-up and given return precautions. Differential Diagnosis Differential diagnosis: Likely gastroenteritis, drug-induced nausea and vomiting and other (various etiologies of vertigo (central and peripheral); ACS; pneumonia; acute viral syndome) Lab Data Attestation: I reviewed the patient's lab results. 07/21/24 02:42 07/21/24 02:42 Labs: Lab Results 07/21/24 07/21/24 07/21/24 Range/Units 02:42 03:45 04:37 WBC 8.3 (4.5-10.0) K/mm3 RBC 4.58 L (4.6-6.20) M/mm3 Hgb 14.5 (14.0-18.0) g/dL Hct 42.0 (42.0-52.0) % MCV 91.7 (80-100) fl MCH 31.7 (26-34) pg MCHC 34.5 (32-36) g/dl RDW 12.9 (11.5-14.5) % Plt Count 251 (150-375) k/mm3 MPV 10.0 (7.4-10.4) fl Immature Gran % (Auto) 0.2 (0-0.5) % Neut % (Auto) 55.7 (45.5-73.1) % Lymph % (Auto) 31.2 (18.3-44.2) % [place] % (Auto) 9.9 H (2.6-8.5) % Eos % (Auto) 2.4 (0-4.4) % Baso % (Auto) 0.6 (0.2-1.2) % Lymph # (Auto) 2.59 (0.9-3.2) K/mm3 [place] # (Auto) 0.8 H (0.1-0.6) K/mm3 Eos # (Auto) 0.2 (0-0.3) K/mm3 Baso # (Auto) 0.1 (0.0-0.1) K/mm3 Abs Immat Gran (auto) 0.02 (0.00-0.031) K/mm3 Absolute Neuts (auto) 4.6 (1.3-6.7) K/mm3 Absolute Nucleated RBC 0.000 (0.0-0.012) K/mm3 Nucleated RBC % 0.0 (0.0-0.2) % PT 12.1 (11.1-14.7) Seconds INR 0.9 APTT 23.2 (22.3-36.8) Seconds Sodium 137 (137-145) mmol/L Potassium 3.7 (3.4-5.0) mmol/L Chloride 103 (98-107) mmol/L Carbon Dioxide 26 (22-30) mmol/L Anion Gap 8 (4-12) mmol/L BUN 21 H (9-20) mg/dL Creatinine 0.90 (0.7-1.3) mg/dL Estim Creat Clear Calc 76 ml/min Estimated GFR > 60 (59 - ) Glucose 129 H (65-110) mg/dL Calcium 9.2 (8.4-10.2) mg/dL Total Bilirubin 0.5 (0.2-1.3) mg/dL AST 27 (17-59) U/L ALT 23 (6-50) U/L Alkaline Phosphatase 85 (38-126) U/L Troponin I < 0.012 (0.000-0.034) ng/mL Total Protein 8.0 (6.3-8.2) g/dL Albumin 4.3 (3.5-5.1) g/dL Lipase 251 (23-300) U/L Urine Color Yellow (Yellow) Urine Appearance Clear (Clear) Urine pH 7.5 (5.0-9.0) Ur Specific [place] 1.027 (1.001-1.035) Urine Protein Negative (Negative) mg/dL Urine Glucose (UA) Negative (Negative) mg/dL Urine Ketones Trace H (Negative) mg/dL Ur Blood (Man) Negative (Negative) Urine Nitrate Negative (Negative) Urine Bilirubin Negative (Negative) Urine Urobilinogen 1.0 (<2.0) mg/dL Leukocyte Esterase Rfl Negative (Negative) EMIL/UL Influenza A (RT-PCR) Negative (Negative) Influenza B (RT-PCR) Negative (Negative) RSV (RT-PCR) Negative (Negative) SARS-CoV-2 RNA (RT-PCR) Negative (Negative) 07/21/24 Range/Units 06:11 WBC (4.5-10.0) K/mm3 RBC (4.6-6.20) M/mm3 Hgb (14.0-18.0) g/dL Hct (42.0-52.0) % MCV (80-100) fl MCH (26-34) pg MCHC (32-36) g/dl RDW (11.5-14.5) % Plt Count (150-375) k/mm3 MPV (7.4-10.4) fl Immature Gran % (Auto) (0-0.5) % Neut % (Auto) (45.5-73.1) % Lymph % (Auto) (18.3-44.2) % Banks % (Auto) (2.6-8.5) % Eos % (Auto) (0-4.4) % Baso % (Auto) (0.2-1.2) % Lymph # (Auto) (0.9-3.2) K/mm3 [place] # (Auto) (0.1-0.6) K/mm3 Eos # (Auto) (0-0.3) K/mm3 Baso # (Auto) (0.0-0.1) K/mm3 Abs Immat Gran (auto) (0.00-0.031) K/mm3 Absolute Neuts (auto) (1.3-6.7) K/mm3 Absolute Nucleated RBC (0.0-0.012) K/mm3 Nucleated RBC % (0.0-0.2) % PT (11.1-14.7) Seconds INR APTT (22.3-36.8) Seconds Sodium (137-145) mmol/L Potassium (3.4-5.0) mmol/L Chloride (98-107) mmol/L Carbon Dioxide (22-30) mmol/L Anion Gap (4-12) mmol/L BUN (9-20) mg/dL Creatinine (0.7-1.3) mg/dL Estim Creat Clear Calc ml/min Estimated GFR (59 - ) Glucose (65-110) mg/dL Calcium (8.4-10.2) mg/dL Total Bilirubin (0.2-1.3) mg/dL AST (17-59) U/L ALT (6-50) U/L Alkaline Phosphatase (38-126) U/L Troponin I < 0.012 (0.000-0.034) ng/mL Total Protein (6.3-8.2) g/dL Albumin (3.5-5.1) g/dL Lipase (23-300) U/L Urine Color (Yellow) Urine Appearance (Clear) Urine pH (5.0-9.0) Ur Specific [place] (1.001-1.035) Urine Protein (Negative) mg/dL Urine Glucose (UA) (Negative) mg/dL Urine Ketones (Negative) mg/dL Ur Blood (Man) (Negative) Urine Nitrate (Negative) Urine Bilirubin (Negative) Urine Urobilinogen (<2.0) mg/dL Leukocyte Esterase Rfl (Negative) EMIL/UL Influenza A (RT-PCR) (Negative) Influenza B (RT-PCR) (Negative) RSV (RT-PCR) (Negative) SARS-CoV-2 RNA (RT-PCR) (Negative) Imaging Data Attestation: I personally reviewed and interpreted this imaging study as follows: My impression: No acute intrathoracic process on my independent interpretation chest x-ray Radiologist's impression: Impressions Chest X-Ray 07/21/24 07:26 Impression: Clear lungs. Questionable COPD. ECG Data EKG #1: Attestation: I personally reviewed and interpreted this ECG as follows: ECG completion date: 07/21/24 ECG completion time: 02:36 Interpretation: Normal sinus rhythm at a rate of 82 beats per minute. ID interval 172. QRS 97. QT/QTC 4 4/443. Good R-wave progression across the precordial leads. No T- wave inversions. Normal axis. Normal ECG. EKG #2: Attestation: I personally reviewed and interpreted this ECG as follows: ECG completion date: 07/21/24 ECG completion time: 05:48 Interpretation: Normal sinus rhythm at a rate of 80 beats per minute. ID interval 172. QRS 100. QT/QTC 393/429. Good R-wave progression across the precordial leads. No T-wave inversions. Normal axis. Normal ECG. Discharge Plan Discharge Clinical Impression: Dizziness, Acute nausea with nonbilious vomiting Patient Disposition: Home, Self-Care Condition: Stable Instructions: Antibiotic Form, Acute Nausea and Vomiting (DC), Dizziness (ED) Additional Instructions: As we discussed, unclear etiology for your symptoms although her EKG, troponin, chest x-ray, and the rest of your labs were normal in addition to your viral swab. Follow-up with your primary care physician. If you do not have the name of doctors listed below. Return to the emergency department any new or worsening symptoms. If her nausea returns you can take the prescribed oral disintegrating tablets of ondansetron/Zofran however, if you become diaphoretic given your risk factors, and especially if you DO have chest pain, recommend presenting to the ED. Prescriptions: New ondansetron 4 mg tablet,disintegrating 4 mg PO Q8H PRN (Reason: nausea and vomiting) Qty: 7 0RF No Action pantoprazole 40 mg tablet,delayed release (DR/EC) 40 mg PO DAILY nitroglycerin 0.4 mg tablet, sublingual 0.4 mg sublingual PRN Rx Instructions: for chest pain clopidogrel 75 mg Tablet 75 mg PO DAILY atorvastatin 40 mg Tablet 40 mg PO DAILY Qty: 90 0RF lisinopril 10 mg tablet 10 mg PO DAILY Qty: 90 0RF aspirin 81 mg tablet,chewable 81 mg PO DAILY Qty: 90 0RF Rx Instructions: Change from high dose aspirin to 81 mg daily starting Jun 17. Follow-up/Referrals: PHYSICIAN,CLOCKMAKER APPRENTICE [Primary Care Provider] - Bartolome Cantu MD [Physician] - (Family practice) Stand Alone Forms: Work/School Release IP Time of Disposition: 07:34
[2024-07-21 03:43] LABS: Troponin I < 0.012 ng/mL (0.000-0.034)
[2024-07-21 03:52] LABS: INR 0.9; Prothrombin Time 12.1 Seconds (11.1-14.7)
[2024-07-21 03:54] LABS: Partial Thromboplastin Time 23.2 Seconds (22.3-36.8)
[2024-07-21 04:29] LABS: Influenza A QL RT-PCR Negative (Negative); Influenza B QL RT-PCR Negative (Negative); RSV RNA, RT-PCR Negative (Negative); SARS-CoV-2 RNA PCR Negative (Negative)
[2024-07-21 04:30] VITALS: BP 131/73; PULSE 81; RESP 11; O2SAT 98
[2024-07-21] MEDS: MECLIZINE HCL 25 MG TABLET PO (04:34)
[2024-07-21 04:46] LABS: Add Urine Microscopic? NO; Appearance Urine Clear (Clear); Bilirubin Urine Negative (Negative); Blood Urine Negative (Negative); Color Urine Yellow (Yellow); Glucose Urine UA Negative (Negative); Ketones Urine Trace mg/dL (Negative); Leukocyte Esterase Ur Negative LEU/UL (Negative); Nitrate Urine Negative (Negative); Protein Urine Negative (Negative); Specific Grav Ur 1.027 (1.001-1.035); pH Urine 7.5 (5.0-9.0)
--- NOTE | 2024-07-21 05:28 | ECG_ITS ---
Test Date: 2024-07-21 05:48:31 Measurements Intervals [place] Rate: 80 P: 48 SD: 172 QRS: 62 QRSD: 100 T: 50 QT: 393 QTc: 455 Interpretive Statements SINUS RHYTHM MINIMAL Q WAVES- INFERIOR LEADS BORDERLINE ECG Compared to ECG 07/21/2024 02:36:13 No significant changes Electronically Signed On 07-21-2024 07:04:29 ORAL PATHOLOGIST by Gabo Peace D.O.
[2024-07-21 05:48] VITALS: BP 136/79; PULSE 84; RESP 16; O2SAT 97
[2024-07-21 06:45] LABS: Troponin I < 0.012 ng/mL (0.000-0.034)
[2024-07-21 07:13] VITALS: BP 143/87; PULSE 82; RESP 18; O2SAT 99
== END 2024-07-21 07:58 | disposition home or self-care (01) ==
PROVIDERS: Emergency Provider Student in an Organized Health Care Education/Training Program
DX: R42 Dizziness and giddiness (principal); R11.2 Nausea with vomiting, unspecified; R06.02 Shortness of breath; Z20.822 Contact with and (suspected) exposure to COVID-19; I25.2 Old myocardial infarction; I10 Essential (primary) hypertension; E78.2 Mixed hyperlipidemia; Z95.5 Presence of coronary angioplasty implant and graft; Z87.891 Personal history of nicotine dependence; Z79.02 Long term (current) use of antithrombotics/antiplatelets; Z79.82 Long term (current) use of aspirin; Z79.899 Other long term (current) drug therapy; R94.31 Abnormal electrocardiogram [ECG] [EKG]; R91.8 Other nonspecific abnormal finding of lung field
CPT/HCPCS: 36415; 71045; 80053; 81003; 83690; 84484; 85025; 85610; 85730; 87637; 93005; 99284; A9270